=== PATIENT | female | born 1990 | race Caucasian/White ===

== ENCOUNTER → 2021-09-21 | Outpatient (CLI) | payer OTHER ==
[~2021-09-21] MED LIST: ALLER-TEC D 5-1 EACH PO; FOLI1; [UNRECOGNIZED DRUG - OTHER] PO
== END | disposition home or self-care (01) ==
LOC: LAB SHORT 12:11 → PLD 12:11
DX: D22.4 Melanocytic nevi of scalp and neck (principal)
CPT/HCPCS: 88305; 88342

== ENCOUNTER → 2024-12-29 | Outpatient (CLI) | payer OTHER | END | disposition home or self-care (01) | LOC: LAB SHORT 11:56 → LAB 11:56 | PROVIDERS: Advanced Practice Midwife | DX: Z01.419 Encounter for gynecological examination (general) (routine) without abnormal findings (principal) | CPT/HCPCS: 87624; G0145 ==